=== PATIENT | male | born 1980 | race Caucasian/White ===

== ENCOUNTER 2016-04-16 12:19 | Inpatient (IN) | payer MEDICARE, OTHER ==
[~2016-04-16] VITALS: Ht 175.3 cm; Wt 111.1 kg
[~2016-04-16 12:19] MED LIST: LOPRESSOR 25 MG25 MG PO; NEURONTIN 300300 MG PO; NORCO 10-325 T1 EACH PO; NORCO 7.5-3251 EACH PO
[2016-04-16 14:10] LABS: RED BLOOD COUNT 5.53 M/UL (4.20-5.50); WHITE BLOOD COUNT 14.1 K/UL (4.5-11.0)
[2016-04-16 15:20] LABS: BUN/CREATININE RATIO 7 (0-10)
[2016-04-16 22:06] LABS: TOTAL PROTEIN, BODY FLUID 4.5 gm/dL
[2016-04-17 08:04] LABS: HEMOGLOBIN 14.4 gm/dl (14.0-17.5); RED BLOOD COUNT 4.71 M/UL (4.20-5.50); WHITE BLOOD COUNT 7.5 K/UL (4.5-11.0)
[2016-04-17 08:20] LABS: BUN/CREATININE RATIO 11 (0-10)
[2016-04-18 04:10] LABS: HEMOGLOBIN 13.5 gm/dl (14.0-17.5); RED BLOOD COUNT 4.46 M/UL (4.20-5.50); WHITE BLOOD COUNT 7.4 K/UL (4.5-11.0)
[2016-04-18 04:36] LABS: BUN/CREATININE RATIO 11 (0-10)
[2016-04-19] MEDS ORDERED: TYLENOL 325MG325 MG PO (17:39)
[2016-04-19] MEDS ORDERED: LORTAB 5-325 M1 EACH PO (17:40)
== END 2016-04-19 20:00 | disposition home or self-care (01) | DRG 565 ==
LOC: ER1 12:19 → ZEROF 22:28 → M/S 04-17 15:07 → PROG CARE 04-17 22:25 → M/S 04-18 17:57
PROVIDERS: Emergency Medicine; ADMIT Internal Medicine
DX: M25.462 Effusion, left knee (principal); E87.2 Acidosis; S83.006A Unspecified dislocation of unspecified patella, initial encounter; Y04.8XXA Assault by other bodily force, initial encounter; Y92.019 Unspecified place in single-family (private) house as the place of occurrence of the external cause; F11.10 Opioid abuse, uncomplicated; Z51.89 Encounter for other specified aftercare; R55 Syncope and collapse; M54.9 Dorsalgia, unspecified; M54.2 Cervicalgia; G89.29 Other chronic pain; Z72.89 Other problems related to lifestyle; Z83.3 Family history of diabetes mellitus; R51 Headache; E11.9 Type 2 diabetes mellitus without complications; K21.9 Gastro-esophageal reflux disease without esophagitis; K44.9 Diaphragmatic hernia without obstruction or gangrene; Z98.890 Other specified postprocedural states; Z90.49 Acquired absence of other specified parts of digestive tract; Z88.0 Allergy status to penicillin; R00.0 Tachycardia, unspecified; Z87.39 Personal history of other diseases of the musculoskeletal system and connective tissue
CPT/HCPCS: 36415; 36600; 70450; 71010; 71250; 72125; 73080; 73090; 73110; 73564; 73700; 73721; 80048; 80053; 80307; 81001; 82150; 82550; 82553; 82803; 82945; 82962; 83036; 83605; 83615; 83690; 83735; 83874; 83986; 84157; 84484; 84550; 85025; 85027; 85610; 85730; 86140; 87040; 87070; 87086; 87205; 89051; 89060; 93005; 96361; 96374; 96375; 99285; C9113; G0378; G0480; J0692; J0696; J1630; J1650; J1815; J1885; J2270; J2405; J2550; J3370; J7030; J7050; J7070; Q9962; Q9963

== ENCOUNTER 2016-04-24 10:59 | Emergency (ER) | payer MEDICARE, OTHER ==
[~2016-04-24 10:59] MED LIST changes: +LORTAB 5-325 M1 EACH PO; +TYLENOL 325MG325 MG PO
== END 2016-04-24 12:00 | disposition home or self-care (01) ==
LOC: ER1 10:59
DX: M25.562 Pain in left knee (principal); G89.29 Other chronic pain; Z88.6 Allergy status to analgesic agent; Y09 Assault by unspecified means
CPT/HCPCS: 99283

== ENCOUNTER 2016-04-26 19:53 | Observation (INO) | payer MEDICARE, OTHER ==
[~2016-04-26] VITALS: Ht 175.3 cm; Wt 110.2 kg
[2016-04-26 20:36] LABS: HEMOGLOBIN 15.2 gm/dl (14.0-17.5); RED BLOOD COUNT 4.89 M/UL (4.20-5.50)
[2016-04-26 20:52] LABS: BUN/CREATININE RATIO 9 (0-10)
[2016-04-27 07:31] LABS: HEMOGLOBIN 14.6 gm/dl (14.0-17.5); RED BLOOD COUNT 4.82 M/UL (4.20-5.50); WHITE BLOOD COUNT 8.9 K/UL (4.5-11.0)
[2016-04-27 07:47] LABS: BUN/CREATININE RATIO 11 (0-10)
[2016-04-27] MEDS ORDERED: TENORMIN 25 MG25 MG PO (19:39)
[2016-04-27] MEDS ORDERED: NAPROXEN500 MG PO (19:55)
== END 2016-04-27 21:07 | disposition home or self-care (01) ==
LOC: ER1 19:53 → ZEROF 04-27 01:40 → M/S 04-27 13:38
PROVIDERS: Specialist/Technologist Athletic Trainer; ADMIT Internal Medicine
DX: M25.562 Pain in left knee (principal); E87.2 Acidosis; K21.9 Gastro-esophageal reflux disease without esophagitis; E66.9 Obesity, unspecified; R00.0 Tachycardia, unspecified; Z87.898 Personal history of other specified conditions; Z88.0 Allergy status to penicillin; Z79.891 Long term (current) use of opiate analgesic; Z79.899 Other long term (current) drug therapy; Z90.49 Acquired absence of other specified parts of digestive tract; Z98.890 Other specified postprocedural states
CPT/HCPCS: ECHO; 36415; 73564; 80048; 80053; 80307; 82009; 83605; 84443; 85025; 86140; 87040; 93005; 93306; 96361; 96374; 96375; 99285; G0378; J2270; J2405; J7030

== ENCOUNTER 2020-03-30 12:58 | Emergency (ER) | payer MEDICARE ==
[~2020-03-30 12:58] MED LIST changes: +FLEXERIL 10 MG10 MG PO; +NAPROXEN500 MG PO; +TENORMIN 25 MG25 MG PO; +Voltaren Gel 1 % TOP; +[UNRECOGNIZED DRUG - OTHER]
[2020-03-30 14:43] LABS: HEMOGLOBIN 15.5 gm/dl (14.0-17.5); RED BLOOD COUNT 4.86 M/UL (4.20-5.50); WHITE BLOOD COUNT 7.6 K/UL (4.5-11.0)
[2020-03-30 15:10] LABS: BUN/CREATININE RATIO 21 (0-10)
== END 2020-03-31 12:10 | disposition other institution (70) ==
LOC: ER1 12:58
PROVIDERS: Emergency Medicine
DX: K22.8 Other specified diseases of esophagus (principal); R00.0 Tachycardia, unspecified; F20.9 Schizophrenia, unspecified; R45.851 Suicidal ideations; Z20.822 Contact with and (suspected) exposure to COVID-19; I10 Essential (primary) hypertension; Z90.49 Acquired absence of other specified parts of digestive tract; Z88.0 Allergy status to penicillin
CPT/HCPCS: 71045; 80053; 80307; 81001; 82550; 82553; 83690; 83874; 84484; 85025; 93005; 99285; U0002

== ENCOUNTER 2020-05-10 17:52 | Emergency (ER) | payer MEDICARE ==
[2020-05-10 18:25] LABS: HEMOGLOBIN 15.5 gm/dl (14.0-17.5); RED BLOOD COUNT 4.86 M/UL (4.20-5.50); WHITE BLOOD COUNT 9.1 K/UL (4.5-11.0)
[2020-05-10 18:38] LABS: BUN/CREATININE RATIO 16 (0-10)
== END 2020-05-11 02:25 | disposition short-term general hospital (02) ==
LOC: ER1 17:52
PROVIDERS: Student in an Organized Health Care Education/Training Program
DX: F41.9 Anxiety disorder, unspecified (principal); I10 Essential (primary) hypertension; Z20.822 Contact with and (suspected) exposure to COVID-19; Z88.0 Allergy status to penicillin
CPT/HCPCS: 80053; 85025; 93005; 99284; G0480; J7120; Q0177; U0002

== ENCOUNTER 2020-05-21 09:14 | Inpatient (IN) | payer MEDICARE ==
[~2020-05-21] VITALS: Ht 185.4 cm; Wt 108.9 kg
[2020-05-21 11:04] LABS: HEMOGLOBIN 16.7 gm/dl (14.0-17.5); RED BLOOD COUNT 5.23 M/UL (4.20-5.50); WHITE BLOOD COUNT 12.2 K/UL (4.5-11.0)
[2020-05-21 11:51] LABS: BUN/CREATININE RATIO 12 (0-10)
[2020-05-22 04:23] LABS: HEMOGLOBIN 13.7 gm/dl (14.0-17.5); RED BLOOD COUNT 4.38 M/UL (4.20-5.50)
[2020-05-22 04:51] LABS: BUN/CREATININE RATIO 18 (0-10)
[2020-05-22] MEDS ORDERED: FOLIC ACID 1 MG1 MG PO (11:35)
[2020-05-22] MEDS ORDERED: THERA-M TABLET1 EACH PO (11:35)
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
== END 2020-05-24 15:39 | disposition home or self-care (01) | DRG 896 ==
LOC: ER1 09:14 → MED SURG 4 17:40 → CDU 17:40 → MED SURG 4 20:40
PROVIDERS: Physician Assistant; ADMIT Internal Medicine
DX: F15.151 Other stimulant abuse with stimulant-induced psychotic disorder with hallucinations (principal); G92 Toxic encephalopathy; J98.11 Atelectasis; Z20.822 Contact with and (suspected) exposure to COVID-19; D64.9 Anemia, unspecified; F17.210 Nicotine dependence, cigarettes, uncomplicated; F10.10 Alcohol abuse, uncomplicated; F20.9 Schizophrenia, unspecified; F31.9 Bipolar disorder, unspecified; R00.0 Tachycardia, unspecified; K21.9 Gastro-esophageal reflux disease without esophagitis; Z90.49 Acquired absence of other specified parts of digestive tract; Z88.0 Allergy status to penicillin; Z88.8 Allergy status to other drugs, medicaments and biological substances; Z82.49 Family history of ischemic heart disease and other diseases of the circulatory system; Z83.3 Family history of diabetes mellitus
CPT/HCPCS: 36415; 71045; 80053; 80307; 81001; 82550; 82553; 83735; 83874; 84439; 84443; 84484; 85025; 85379; 87040; 93005; 96374; 96376; 99285; G0480; J2060; J3411; J3475; J7030; U0002

== ENCOUNTER 2020-05-29 16:14 | Inpatient (IN) | payer MEDICARE ==
[~2020-05-29] VITALS: Ht 185.4 cm; Wt 101.6 kg
[~2020-05-29 16:14] MED LIST changes: +FOLIC ACID 1 MG1 MG PO; +THERA-M TABLET1 EACH PO
[2020-05-29 16:31] LABS: HEMOGLOBIN 15.5 gm/dl (14.0-17.5); RED BLOOD COUNT 4.91 M/UL (4.20-5.50); WHITE BLOOD COUNT 13.5 K/UL (4.5-11.0)
[2020-05-29 16:54] LABS: BUN/CREATININE RATIO 6 (0-10)
[2020-05-30 04:20] LABS: HEMOGLOBIN 12.9 gm/dl (14.0-17.5); RED BLOOD COUNT 4.1 M/UL (4.20-5.50); WHITE BLOOD COUNT 7.7 K/UL (4.5-11.0)
[2020-05-30 04:45] LABS: BUN/CREATININE RATIO 7 (0-10)
[2020-05-30 13:37] LABS: BUN/CREATININE RATIO 7 (0-10)
[2020-05-31 06:40] LABS: BUN/CREATININE RATIO 6 (0-10)
[2020-06-01 04:52] LABS: ACINETOBACTER BAUMANNII Not Detected (Negative); CANDIDA ALBICANS Not Detected (Negative); CANDIDA KRUSEI Not Detected (Negative); CANDIDA TROPICALIS Not Detected (Negative); ENTEROCOCCUS Not Detected (Negative); ESCHERICHIA COLI Not Detected (Negative); HAEMOPHILUS INFLUENZAE Not Detected (Negative); KLEBSIELLA OXYTOCA Not Detected (Negative); KLEBSIELLA PNEUMONIAE Not Detected (Negative); KPC-CARBAPENEM-RESISTANCE GENE Not Detected (Negative); PROTEUS Not Detected (Negative); PSEUDOMONAS AERUGINOSA Not Detected (Negative); SERRATIA MARCESANS Not Detected (Negative); STAPHYLOCOCCUS Not Detected (Negative); STAPHYLOCOCCUS AUREUS Not Detected (Negative); STREP AGALACTIAE (GROUP B) Not Detected (Negative); STREP PYOGENES (GROUP A) Not Detected (Negative); STREPTOCOCCUS Not Detected (Negative); mecA (METHICILLIN RESIST GENE Not Detected (Negative); vanA/B (VANCOMYCIN RESIST GENE Not Detected (Negative)
[2020-06-01 06:57] LABS: BUN/CREATININE RATIO 6 (0-10)
[2020-06-02 04:53] LABS: HEMOGLOBIN 13.9 gm/dl (14.0-17.5); RED BLOOD COUNT 4.54 M/UL (4.20-5.50); WHITE BLOOD COUNT 5.4 K/UL (4.5-11.0)
[2020-06-02 05:16] LABS: BUN/CREATININE RATIO 8 (0-10)
[2020-06-03] MEDS ORDERED: OLANZAPINE10 MG PO (14:34)
[2020-06-03] MEDS ORDERED: CITALOPRAM HBR40 MG PO (14:34)
[2020-06-03] MEDS ORDERED: TRAZODONE HCL100 MG PO (14:35)
[2020-06-03] MEDS ORDERED: HYDROXYZINE HCL25 MG PO (23:36)
== END 2020-06-02 13:24 | disposition home or self-care (01) | DRG 897 ==
LOC: ER1 16:14 → CDU 18:25 → MED SURG 4 18:25
PROVIDERS: Family Medicine; ADMIT Internal Medicine
PROC: B24BZZ4 Ultrasonography of Heart with Aorta, Transesophageal (ICD-10-PCS; principal; 2020-05-29)
DX: F15.129 Other stimulant abuse with intoxication, unspecified (principal); E87.2 Acidosis; N17.9 Acute kidney failure, unspecified; M62.82 Rhabdomyolysis; R65.10 Systemic inflammatory response syndrome (SIRS) of non-infectious origin without acute organ dysfunction; F10.229 Alcohol dependence with intoxication, unspecified; F20.9 Schizophrenia, unspecified; K21.9 Gastro-esophageal reflux disease without esophagitis; F17.210 Nicotine dependence, cigarettes, uncomplicated; E86.0 Dehydration; E86.1 Hypovolemia; E87.6 Hypokalemia; F22 Delusional disorders
CPT/HCPCS: ECHO; 36415; 36600; 71045; 80048; 80053; 80202; 80307; 81001; 82550; 82553; 82803; 83605; 83690; 83735; 83874; 84100; 84439; 84443; 84484; 85025; 85027; 85610; 87040; 87077; 87150; 93005; 93306; 94760; 96374; 96375; 96376; 99285; G0378; G0480; J2060; J3370; J7030; J7040; J7070; U0002

== ENCOUNTER 2020-06-03 05:53 | Inpatient (IN) | payer MEDICARE ==
[~2020-06-03] VITALS: Ht 185.4 cm; Wt 108.9 kg
[2020-06-03 06:20] LABS: HEMOGLOBIN 15.8 gm/dl (14.0-17.5)
[2020-06-03 06:24] LABS: RED BLOOD COUNT 5.01 M/UL (4.20-5.50); WHITE BLOOD COUNT 10.6 K/UL (4.5-11.0)
[2020-06-03 06:50] LABS: BUN/CREATININE RATIO 4 (0-10)
[2020-06-03] MEDS ORDERED: OLANZAPINE10 MG PO (14:34)
[2020-06-03] MEDS ORDERED: CITALOPRAM HBR40 MG PO (14:34)
[2020-06-03] MEDS ORDERED: TRAZODONE HCL100 MG PO (14:35)
[2020-06-03 23:31] LABS: ACINETOBACTER BAUMANNII Not Detected (Negative); CANDIDA ALBICANS Not Detected (Negative); CANDIDA KRUSEI Not Detected (Negative); CANDIDA TROPICALIS Not Detected (Negative); ENTEROCOCCUS Not Detected (Negative); ESCHERICHIA COLI Not Detected (Negative); HAEMOPHILUS INFLUENZAE Not Detected (Negative); KLEBSIELLA OXYTOCA Not Detected (Negative); KLEBSIELLA PNEUMONIAE Not Detected (Negative); KPC-CARBAPENEM-RESISTANCE GENE Not Detected (Negative); PROTEUS Not Detected (Negative); PSEUDOMONAS AERUGINOSA Not Detected (Negative); SERRATIA MARCESANS Not Detected (Negative); STAPHYLOCOCCUS AUREUS Not Detected (Negative); STREP AGALACTIAE (GROUP B) Not Detected (Negative); STREP PYOGENES (GROUP A) Not Detected (Negative); STREPTOCOCCUS Not Detected (Negative); mecA (METHICILLIN RESIST GENE Not Detected (Negative); vanA/B (VANCOMYCIN RESIST GENE Not Detected (Negative)
[2020-06-03] MEDS ORDERED: HYDROXYZINE HCL25 MG PO (23:36)
[2020-06-04 01:10] LABS: STAPHYLOCOCCUS DETECTED (Negative)
[2020-06-04 07:36] LABS: HEMOGLOBIN 16.1 gm/dl (14.0-17.5); RED BLOOD COUNT 5.34 M/UL (4.20-5.50)
[2020-06-04 07:40] LABS: WHITE BLOOD COUNT 7.2 K/UL (4.5-11.0)
[2020-06-04 08:20] LABS: BUN/CREATININE RATIO 9 (0-10)
[2020-06-04] MEDS ORDERED: TAB-A-VITE TA400 MC1 PO (13:15)
[2020-06-04] MEDS ORDERED: ELIQUIS5 M1 PO (13:15)
[2020-06-04] MEDS ORDERED: VITAMIN B-1100 M1 PO (13:15)
[2020-06-05 11:15] LABS: RED BLOOD COUNT 4.73 M/UL (4.20-5.50); WHITE BLOOD COUNT 7.7 K/UL (4.5-11.0)
[2020-06-05 11:38] LABS: BUN/CREATININE RATIO 10 (0-10)
--- NOTE | 2020-06-06 13:35 | NUR ---
PER NOTE ON DISCHARGE, PATIENT WAS AMBULATED AND O2 SATS WERE AT 90% AFTER WALK. HOSPITALIST NOTIFIED.
== END 2020-06-06 14:15 | disposition home or self-care (01) | DRG 176 ==
LOC: ER1 05:53 → CDU 09:32 → PROG CARE 18:45 → MED SURG 4 06-05 16:20
PROVIDERS: Emergency Medicine; Physician Assistant; ADMIT Internal Medicine
PROC: B24BZZ4 Ultrasonography of Heart with Aorta, Transesophageal (ICD-10-PCS; principal; 2020-06-03)
DX: I26.99 Other pulmonary embolism without acute cor pulmonale (principal); F19.10 Other psychoactive substance abuse, uncomplicated; F10.10 Alcohol abuse, uncomplicated; F20.9 Schizophrenia, unspecified; F15.10 Other stimulant abuse, uncomplicated; I10 Essential (primary) hypertension; K21.9 Gastro-esophageal reflux disease without esophagitis; I70.0 Atherosclerosis of aorta; F17.210 Nicotine dependence, cigarettes, uncomplicated; Z91.14 Patient's other noncompliance with medication regimen; Z90.49 Acquired absence of other specified parts of digestive tract; Z82.49 Family history of ischemic heart disease and other diseases of the circulatory system; Z83.3 Family history of diabetes mellitus; Z88.0 Allergy status to penicillin; Z79.01 Long term (current) use of anticoagulants
CPT/HCPCS: 36415; 71045; 80048; 80053; 80202; 82550; 82553; 83605; 83690; 83735; 83874; 83880; 84100; 84484; 85025; 85027; 85379; 85610; 85730; 87040; 87077; 87150; 87186; 93005; 93308; 96374; 99285; J1644; J2060; J3370; J7070; Q9967; U0002

== ENCOUNTER 2020-06-22 10:15 | Emergency (ER) | payer MEDICARE ==
[~2020-06-22 10:15] MED LIST changes: +CITALOPRAM HBR40 MG PO; +ELIQUIS5 M1 PO; +HYDROXYZINE HCL25 MG PO; +OLANZAPINE10 MG PO; +TAB-A-VITE TA400 MC1 PO; +TRAZODONE HCL100 MG PO; +VITAMIN B-1100 M1 PO
[2020-06-22 10:55] LABS: HEMOGLOBIN 17.4 gm/dl (14.0-17.5); RED BLOOD COUNT 5.53 M/UL (4.20-5.50); WHITE BLOOD COUNT 6.9 K/UL (4.5-11.0)
[2020-06-22 11:30] LABS: BUN/CREATININE RATIO 6 (0-10)
== END 2020-06-22 17:50 | disposition home or self-care (01) ==
LOC: ER1 10:15
PROVIDERS: Emergency Medicine
DX: R44.0 Auditory hallucinations (principal); I10 Essential (primary) hypertension
CPT/HCPCS: 71045; 80053; 80307; 81001; 82550; 82553; 83690; 83880; 84484; 85025; 85610; 85730; 93005; 96374; 99285; J2060; Q9967

== ENCOUNTER 2020-09-14 08:56 | Observation (INO) | payer MEDICARE ==
[~2020-09-14] VITALS: Ht 188 cm; Wt 105.3 kg
[2020-09-14 11:04] LABS: HEMOGLOBIN 15.8 gm/dl (14.0-17.5); RED BLOOD COUNT 5.28 M/UL (4.20-5.50); WHITE BLOOD COUNT 13.1 K/UL (4.5-11.0)
[2020-09-14 11:33] LABS: BUN/CREATININE RATIO 8 (0-10)
--- NOTE | 2020-09-14 23:01 | NUR ---
2250 HOURSE MECHANICAL MANAGER (RAQUEL) CONTACTED ABOUT PATIENT'S BEDREST STATUS AND THAT HE REFUSES TO STAY IN THE BED. CASKET ASSEMBLER WAS ALSO NOTIFIED THAT THE PATIENT'S SITTER WASN'T GOING WITH THE PAITENT INTO THE BATHROOM TO MONITOR HIM BECAUSE OF HIS SI STATUS. NURSE DISCUSSED WITH SITTER THAT THE PATIENT NEEDS TO BE MONITOR EVEN IN THE BATHROOM BECAUSE OF SI STATUS. SITTER VERBALIZED UNDERSTANDING.
[2020-09-15 03:03] LABS: HEMOGLOBIN 13.9 gm/dl (14.0-17.5)
[2020-09-15 03:06] LABS: RED BLOOD COUNT 4.46 M/UL (4.20-5.50); WHITE BLOOD COUNT 6.8 K/UL (4.5-11.0)
[2020-09-15 03:18] LABS: BUN/CREATININE RATIO 8 (0-10)
[2020-09-15] MEDS ORDERED: LOPRESSOR 25 MG25 MG PO (15:54)
[2020-09-15] MEDS ORDERED: ELIQUIS 5 MG TAB5 MG PO (15:54)
[2020-09-15] MEDS ORDERED: TAB-A-VITE TA400 MC1 PO (15:54)
[2020-09-16 03:10] LABS: HEMOGLOBIN 13.5 gm/dl (14.0-17.5); RED BLOOD COUNT 4.35 M/UL (4.20-5.50); WHITE BLOOD COUNT 6.1 K/UL (4.5-11.0)
[2020-09-16 03:40] LABS: BUN/CREATININE RATIO 10 (0-10)
[2020-09-17 04:42] LABS: HEMOGLOBIN 13.2 gm/dl (14.0-17.5); RED BLOOD COUNT 4.46 M/UL (4.20-5.50)
[2020-09-17 04:44] LABS: WHITE BLOOD COUNT 11.2 K/UL (4.5-11.0)
[2020-09-17 05:15] LABS: BUN/CREATININE RATIO 9 (0-10)
[2020-09-17] MEDS ORDERED: KLONOPIN0.5 MG PO (10:28)
[2020-09-17] MEDS ORDERED: LEVOFLOXACIN500 MG PO (10:28)
== END 2020-09-17 12:20 | disposition home or self-care (01) ==
LOC: ER1 08:56 → PROG CARE 13:27 → CDU 13:27 → PROG CARE 18:05
PROVIDERS: Physician Assistant; Physician Assistant Medical; ADMIT Internal Medicine Infectious Disease
DX: R00.0 Tachycardia, unspecified (principal); J15.9 Unspecified bacterial pneumonia; F31.9 Bipolar disorder, unspecified; I10 Essential (primary) hypertension; Z20.822 Contact with and (suspected) exposure to COVID-19; E87.6 Hypokalemia; F17.210 Nicotine dependence, cigarettes, uncomplicated; F10.10 Alcohol abuse, uncomplicated; F15.10 Other stimulant abuse, uncomplicated; F19.10 Other psychoactive substance abuse, uncomplicated; R44.1 Visual hallucinations; Z86.711 Personal history of pulmonary embolism; Z79.01 Long term (current) use of anticoagulants; Z91.14 Patient's other noncompliance with medication regimen; Z82.49 Family history of ischemic heart disease and other diseases of the circulatory system; Z83.3 Family history of diabetes mellitus
CPT/HCPCS: 36415; 71046; 80048; 80053; 80307; 83605; 83735; 84439; 84443; 85025; 85027; 87040; 93005; 96372; 96374; 99285; G0378; G0480; J2060; J2405; J3486; U0002

== ENCOUNTER 2020-09-24 15:11 | Emergency (ER) | payer MEDICARE ==
[~2020-09-24 15:11] MED LIST changes: +ELIQUIS 5 MG TAB5 MG PO; +KLONOPIN0.5 MG PO; +LEVOFLOXACIN500 MG PO
[2020-09-24 18:19] LABS: HEMOGLOBIN 16.1 gm/dl (14.0-17.5); RED BLOOD COUNT 5.2 M/UL (4.20-5.50); WHITE BLOOD COUNT 2.5 K/UL (4.5-11.0)
[2020-09-24 18:57] LABS: BUN/CREATININE RATIO 8 (0-10)
[2020-09-24] MEDS ORDERED: DECADRON6 MG PO (21:59)
[2020-09-24] MEDS ORDERED: AZITHROMYCIN250 MG PO (21:59)
== END 2020-09-24 22:30 | disposition home or self-care (01) ==
LOC: ER1 15:11
PROVIDERS: Emergency Medicine
DX: U07.1 COVID-19 (principal); J12.82 Pneumonia due to coronavirus disease 2019; D72.819 Decreased white blood cell count, unspecified; Z88.0 Allergy status to penicillin
CPT/HCPCS: 71045; 80053; 82550; 82553; 83735; 83874; 83880; 84484; 85025; 93005; 99285; G0480; Q9967

== ENCOUNTER 2020-10-25 09:11 | Inpatient (IN) | payer MEDICARE ==
[~2020-10-25] VITALS: Ht 185.4 cm; Wt 103.9 kg
[~2020-10-25 09:11] MED LIST changes: +AZITHROMYCIN250 MG PO; +DECADRON6 MG PO
[2020-10-25 10:18] LABS: HEMOGLOBIN 17.7 gm/dl (14.0-17.5); RED BLOOD COUNT 5.98 M/UL (4.20-5.50); WHITE BLOOD COUNT 25.2 K/UL (4.5-11.0)
[2020-10-25] MEDS ORDERED: LOPRESSOR 25 MG25 MG PO (14:11)
[2020-10-26 02:29] LABS: WHITE BLOOD COUNT 13.2 K/UL (4.5-11.0)
[2020-10-26 02:30] LABS: HEMOGLOBIN 14.3 gm/dl (14.0-17.5); RED BLOOD COUNT 4.6 M/UL (4.20-5.50)
[2020-10-26 03:16] LABS: BUN/CREATININE RATIO 18 (0-10)
[2020-10-27 04:02] LABS: RED BLOOD COUNT 4.26 M/UL (4.20-5.50)
[2020-10-27 04:08] LABS: WHITE BLOOD COUNT 5.3 K/UL (4.5-11.0)
[2020-10-27 04:44] LABS: BUN/CREATININE RATIO 10 (0-10)
[2020-10-28 04:08] LABS: HEMOGLOBIN 13.5 gm/dl (14.0-17.5); RED BLOOD COUNT 4.34 M/UL (4.20-5.50)
[2020-10-28 04:10] LABS: WHITE BLOOD COUNT 8.5 K/UL (4.5-11.0)
[2020-10-28 05:43] LABS: BUN/CREATININE RATIO 7 (0-10)
[2020-10-28] MEDS ORDERED: ELIQUIS 5 MG TAB5 MG PO (17:57)
[2020-10-28] MEDS ORDERED: ELIQUIS5 MG PO (17:57)
[2020-10-28] MEDS ORDERED: ZOFRAN 4 MG TAB4 MG PO (18:01)
[2020-10-28] MEDS ORDERED: LEVOFLOXACIN750 MG PO (18:01)
[2020-10-28] MEDS ORDERED: PROTONIX 40 MG40 M1 PO (18:12)
--- NOTE | 2020-10-28 19:25 | NUR ---
PT BEING DISCHARGED HOME. PT STATING THAT HE HAD A WALLET AND CLOTHES THAT WERE MISSING. PT STATED THAT HE HAD THEM WHEN HE WAS ADMITTED TO THE HOSPITAL. SPOKE WITH SECURITY AND SECURITY STATED THAT THE PT DID NOT HAVE ANY BELONGINGS IN THE SAFE. SPOKE WITH RESOURCE RN AND RESOURCE RN STATED THAT HE HAD CHECKED THE LOST AND FOUND, DIRTY UTILITY, AND THE ER AND WAS UNABLE TO FIND ANYTHING BELONGING TO THE PATIENT. PT ALSO DID NOT HAVE A VERDUGO SLIP IN HIS CHART INDICATING THAT HE HAD ANY BELONGINGS LOCKED UP. PT'S CHART DID NOT MENTION A WALLET UPON ADMISSION.
== END 2020-10-28 20:00 | disposition home or self-care (01) | DRG 193 ==
LOC: ER1 09:11 → M/S 13:50 → CDU 13:50 → M/S 17:53
PROVIDERS: Emergency Medicine; Physician Assistant; Physician Assistant Medical; ADMIT Internal Medicine
DX: J18.9 Pneumonia, unspecified organism (principal); I26.99 Other pulmonary embolism without acute cor pulmonale; I82.621 Acute embolism and thrombosis of deep veins of right upper extremity; N17.9 Acute kidney failure, unspecified; M62.82 Rhabdomyolysis; E87.1 Hypo-osmolality and hyponatremia; E87.2 Acidosis; Z20.822 Contact with and (suspected) exposure to COVID-19; E80.6 Other disorders of bilirubin metabolism; K21.9 Gastro-esophageal reflux disease without esophagitis; F31.9 Bipolar disorder, unspecified; F20.9 Schizophrenia, unspecified; D75.1 Secondary polycythemia; F10.10 Alcohol abuse, uncomplicated; F19.10 Other psychoactive substance abuse, uncomplicated; F15.10 Other stimulant abuse, uncomplicated; Z88.1 Allergy status to other antibiotic agents; Z79.01 Long term (current) use of anticoagulants; Z86.718 Personal history of other venous thrombosis and embolism; Z91.14 Patient's other noncompliance with medication regimen; Z90.49 Acquired absence of other specified parts of digestive tract; Z88.6 Allergy status to analgesic agent; Z88.0 Allergy status to penicillin; Z83.3 Family history of diabetes mellitus; Z82.49 Family history of ischemic heart disease and other diseases of the circulatory system
CPT/HCPCS: 36415; 71045; 71046; 80048; 80053; 80076; 80202; 80307; 81001; 82550; 82553; 83690; 83735; 83874; 84484; 85025; 85027; 87040; 93971; 96374; 96375; 96376; 99285; G0378; G0480; J1650; J1956; J2060; J2405; J3370; J7030; J7070; Q9967; U0002

== ENCOUNTER 2020-11-03 17:28 | Emergency (ER) | payer MEDICARE ==
[~2020-11-03 17:28] MED LIST changes: +ELIQUIS5 MG PO; +LEVOFLOXACIN750 MG PO; +PROTONIX 40 MG40 M1 PO; +ZOFRAN 4 MG TAB4 MG PO
[2020-11-03 18:25] LABS: RED BLOOD COUNT 5.17 M/UL (4.20-5.50); WHITE BLOOD COUNT 8.4 K/UL (4.5-11.0)
[2020-11-03 18:28] LABS: HEMOGLOBIN 16.2 gm/dl (14.0-17.5)
[2020-11-03 18:43] LABS: BUN/CREATININE RATIO 7 (0-10)
== END 2020-11-03 20:10 | disposition home or self-care (01) ==
LOC: ER1 17:28
PROVIDERS: Nurse Practitioner
DX: R10.9 Unspecified abdominal pain (principal); R30.0 Dysuria; R11.0 Nausea; F17.210 Nicotine dependence, cigarettes, uncomplicated
CPT/HCPCS: 80053; 81001; 85025; 99284

== ENCOUNTER 2020-11-09 17:49 | Emergency (ER) | payer MEDICARE ==
[2020-11-09 19:31] LABS: HEMOGLOBIN 15.8 gm/dl (14.0-17.5); RED BLOOD COUNT 4.94 M/UL (4.20-5.50); WHITE BLOOD COUNT 14.7 K/UL (4.5-11.0)
[2020-11-09 20:25] LABS: BUN/CREATININE RATIO 6 (0-10)
== END 2020-11-09 22:08 | disposition home or self-care (01) ==
LOC: ER1 17:49
PROVIDERS: Preventive Medicine Occupational Medicine
DX: E86.0 Dehydration (principal); F15.10 Other stimulant abuse, uncomplicated; R19.7 Diarrhea, unspecified; R11.2 Nausea with vomiting, unspecified
CPT/HCPCS: 80053; 82550; 82553; 83690; 83874; 84484; 85025; 85652; 86140; 96374; 99284; J2060; J7030

== ENCOUNTER 2020-11-15 11:30 | Emergency (ER) | payer MEDICARE ==
[2020-11-15 12:29] LABS: HEMOGLOBIN 15.4 gm/dl (14.0-17.5); RED BLOOD COUNT 4.87 M/UL (4.20-5.50); WHITE BLOOD COUNT 6.3 K/UL (4.5-11.0)
[2020-11-15 13:47] LABS: BUN/CREATININE RATIO 7 (0-10)
== END 2020-11-15 17:07 | disposition short-term general hospital (02) ==
LOC: ER1 11:30
PROVIDERS: Physician Assistant
DX: R44.3 Hallucinations, unspecified (principal); F10.10 Alcohol abuse, uncomplicated; F17.220 Nicotine dependence, chewing tobacco, uncomplicated; Z90.49 Acquired absence of other specified parts of digestive tract; Z90.89 Acquired absence of other organs; Z88.0 Allergy status to penicillin; Z88.6 Allergy status to analgesic agent; Z20.822 Contact with and (suspected) exposure to COVID-19; Y90.0 Blood alcohol level of less than 20 mg/100 ml
CPT/HCPCS: 80053; 85025; 93005; 96374; 96375; 99285; G0480; J2060; J3411; J3475; J7030; U0002

== ENCOUNTER 2020-11-23 14:57 | Emergency (ER) | payer MEDICARE ==
[2020-11-23 16:25] LABS: HEMOGLOBIN 16.3 gm/dl (14.0-17.5); RED BLOOD COUNT 5.18 M/UL (4.20-5.50); WHITE BLOOD COUNT 14.4 K/UL (4.5-11.0)
[2020-11-23 16:49] LABS: BUN/CREATININE RATIO 14 (0-10)
[2020-11-23] MEDS ORDERED: PROTONIX 40 MG40 M1 PO (20:58)
[2020-11-23] MEDS ORDERED: PHENERGAN 12.12.5 M1 PO (20:58)
== END 2020-11-23 21:09 | disposition home or self-care (01) ==
LOC: ER1 14:57
PROVIDERS: Physician Assistant; Student in an Organized Health Care Education/Training Program
DX: K22.89 Other specified disease of esophagus (principal); I10 Essential (primary) hypertension; R00.0 Tachycardia, unspecified; Z79.01 Long term (current) use of anticoagulants; F17.200 Nicotine dependence, unspecified, uncomplicated; R73.9 Hyperglycemia, unspecified; Z90.49 Acquired absence of other specified parts of digestive tract
CPT/HCPCS: 80053; 80307; 81001; 82550; 83605; 83690; 85025; 87040; 96374; 96375; 99284; J2270; J2405; J7030; Q9967

== ENCOUNTER 2020-11-24 18:25 | Emergency (ER) | payer MEDICARE ==
[~2020-11-24 18:25] MED LIST changes: +PHENERGAN 12.12.5 M1 PO
[2020-11-24 18:46] LABS: HEMOGLOBIN 15.4 gm/dl (14.0-17.5); RED BLOOD COUNT 4.98 M/UL (4.20-5.50); WHITE BLOOD COUNT 10.9 K/UL (4.5-11.0)
[2020-11-24 19:10] LABS: BUN/CREATININE RATIO 4 (0-10)
== END 2020-11-25 00:05 | disposition home or self-care (01) ==
LOC: ER1 18:25
PROVIDERS: Preventive Medicine Occupational Medicine
DX: F19.10 Other psychoactive substance abuse, uncomplicated (principal); I10 Essential (primary) hypertension; F17.210 Nicotine dependence, cigarettes, uncomplicated; Z20.822 Contact with and (suspected) exposure to COVID-19
CPT/HCPCS: 71045; 80053; 80307; 81001; 85025; 85652; 86140; 87086; 93005; 96374; 99284; J2060; U0002

== ENCOUNTER 2020-12-19 22:57 | Observation (INO) | payer MEDICARE ==
[~2020-12-19] VITALS: Ht 185.4 cm; Wt 90.5 kg
[2020-12-20 00:40] LABS: HEMOGLOBIN 14.4 gm/dl (14.0-17.5); RED BLOOD COUNT 4.57 M/UL (4.20-5.50); WHITE BLOOD COUNT 7.1 K/UL (4.5-11.0)
[2020-12-20 00:52] LABS: BUN/CREATININE RATIO 8 (0-10)
[2020-12-20] MEDS ORDERED: ELIQUIS5 MG PO (09:59)
[2020-12-20] MEDS ORDERED: PROTONIX 40 MG40 M1 PO (10:01)
--- NOTE | 2020-12-20 17:55 | NUR ---
PT HAS REQUESTED TO REMOVE CONTINUOUS FLUIDS. HE IS SITTING UP IN BED EATING AT THIS TIME, HE DENIES NEEDS OR C/O AT THIS TIME.
[2020-12-21 06:57] LABS: BUN/CREATININE RATIO 8 (0-10)
--- NOTE | 2020-12-21 11:40 | NUR ---
[facility] DID ZOOM WITH PATIENT, HE HAS BEEN RECOMMENDED FOR OUT PATIENT CARE, POSSIBLY WITH [facility].
== END 2020-12-21 13:20 | disposition home or self-care (01) ==
LOC: ER1 22:57 → CDU 12-20 02:09 → MED SURG 4 12-20 02:09
PROVIDERS: Family Medicine; Internal Medicine; ADMIT Internal Medicine
DX: R11.2 Nausea with vomiting, unspecified (principal); R00.0 Tachycardia, unspecified; F31.9 Bipolar disorder, unspecified; F20.9 Schizophrenia, unspecified; F17.200 Nicotine dependence, unspecified, uncomplicated; R45.851 Suicidal ideations; F15.10 Other stimulant abuse, uncomplicated; F10.10 Alcohol abuse, uncomplicated; K21.9 Gastro-esophageal reflux disease without esophagitis; J44.9 Chronic obstructive pulmonary disease, unspecified; Z20.822 Contact with and (suspected) exposure to COVID-19; Z86.711 Personal history of pulmonary embolism; Z79.01 Long term (current) use of anticoagulants; Z79.899 Other long term (current) drug therapy; Z88.0 Allergy status to penicillin; Z88.1 Allergy status to other antibiotic agents; Z88.6 Allergy status to analgesic agent; Z88.8 Allergy status to other drugs, medicaments and biological substances; Z90.49 Acquired absence of other specified parts of digestive tract; Z98.890 Other specified postprocedural states; Z91.19 Patient's noncompliance with other medical treatment and regimen
CPT/HCPCS: 36415; 80053; 80307; 81001; 82550; 82553; 83690; 83735; 83874; 84484; 85025; 85610; 93005; 96365; 96375; 96376; 99285; C9113; G0378; G0480; J3411; J3475; J7030; U0002

== ENCOUNTER 2021-01-06 00:23 | Emergency (ER) | payer MEDICARE ==
[2021-01-06 01:19] LABS: HEMOGLOBIN 15.3 gm/dl (14.0-17.5); RED BLOOD COUNT 4.88 M/UL (4.20-5.50)
[2021-01-06 01:36] LABS: BUN/CREATININE RATIO 8 (0-10)
[2021-01-06] MEDS ORDERED: ZOFRAN4 MG PO (03:18)
== END 2021-01-06 03:45 | disposition home or self-care (01) ==
LOC: ER1 00:23
PROVIDERS: Physician Assistant Medical
DX: F19.10 Other psychoactive substance abuse, uncomplicated (principal); R11.2 Nausea with vomiting, unspecified; J44.9 Chronic obstructive pulmonary disease, unspecified; K21.9 Gastro-esophageal reflux disease without esophagitis; I10 Essential (primary) hypertension; Z88.0 Allergy status to penicillin; Z79.01 Long term (current) use of anticoagulants
CPT/HCPCS: 80053; 80307; 81001; 83690; 85025; 93005; 96374; 99284; G0480; J2405; J7030

== ENCOUNTER → 2021-01-24 | Outpatient (CLI) | payer OTHER ==
[~2021-01-24] MED LIST changes: +ZOFRAN4 MG PO
== END ==
LOC: LAB 13:29
DX: Z02.83 Encounter for blood-alcohol and blood-drug test (principal)
CPT/HCPCS: 36415

== ENCOUNTER 2021-04-28 11:58 | Emergency (ER) | payer MEDICARE ==
[2021-04-28 12:33] LABS: HEMOGLOBIN 15.5 gm/dl (14.0-17.5); RED BLOOD COUNT 5.05 M/UL (4.20-5.50)
[2021-04-28 13:05] LABS: BUN/CREATININE RATIO 14 (0-10)
== END 2021-04-28 16:11 | disposition home or self-care (01) ==
LOC: ER1 11:58
PROVIDERS: Nurse Practitioner
DX: R07.89 Other chest pain (principal); Z88.0 Allergy status to penicillin
CPT/HCPCS: 71045; 80053; 82550; 82553; 84484; 85025; 93005; 96374; 99285; J2270

== ENCOUNTER 2021-05-28 19:52 | Observation (INO) | payer MEDICARE ==
[~2021-05-28] VITALS: Ht 182.9 cm; Wt 85.7 kg
[~2021-05-28 19:52] MED LIST changes: -HYDROXYZINE HCL25 MG PO
[2021-05-28 21:34] LABS: HEMOGLOBIN 15.2 gm/dl (14.0-17.5); RED BLOOD COUNT 4.93 M/UL (4.20-5.50); WHITE BLOOD COUNT 23.1 K/UL (4.5-11.0)
[2021-05-28 22:15] LABS: BUN/CREATININE RATIO 7 (0-10)
[2021-05-29] MEDS ORDERED: COMPAZINE5 MG PO (18:44)
[2021-05-29] MEDS ORDERED: ZYPREXA10 MG PO (18:45)
[2021-05-29] MEDS ORDERED: HYDROXYZINE HCL25 MG PO (23:36)
[2021-05-30 04:36] LABS: BUN/CREATININE RATIO 4 (0-10)
[2021-05-31 06:41] LABS: HEMOGLOBIN 12.8 gm/dl (14.0-17.5); RED BLOOD COUNT 4.23 M/UL (4.20-5.50); WHITE BLOOD COUNT 5.2 K/UL (4.5-11.0)
[2021-05-31 07:18] LABS: BUN/CREATININE RATIO 6 (0-10)
[2021-05-31] MEDS ORDERED: LEVOFLOXACIN750 MG PO (11:14)
[2021-05-31] MEDS ORDERED: MYLANTA MAXIMU355 ML PO (11:14)
== END 2021-05-31 13:49 | disposition home or self-care (01) ==
LOC: ER1 19:52 → MED SURG 4 05-29 04:11 → CDU 05-29 04:11 → MED SURG 4 05-29 04:11
PROVIDERS: Family Medicine; Internal Medicine; Physician Assistant Medical; ADMIT Internal Medicine
DX: J18.9 Pneumonia, unspecified organism (principal); Z20.822 Contact with and (suspected) exposure to COVID-19; K21.9 Gastro-esophageal reflux disease without esophagitis; N20.0 Calculus of kidney; F19.10 Other psychoactive substance abuse, uncomplicated; F10.10 Alcohol abuse, uncomplicated; F20.9 Schizophrenia, unspecified; F31.9 Bipolar disorder, unspecified; J44.9 Chronic obstructive pulmonary disease, unspecified; Z79.01 Long term (current) use of anticoagulants; Z79.899 Other long term (current) drug therapy; Z86.711 Personal history of pulmonary embolism; Z88.0 Allergy status to penicillin; Z88.1 Allergy status to other antibiotic agents; Z88.6 Allergy status to analgesic agent
CPT/HCPCS: 36415; 71045; 80053; 80202; 80307; 81001; 83605; 83690; 83735; 84100; 85025; 85610; 87040; 87086; 93005; 96365; 96375; 96376; 99285; C9113; G0378; G0480; J1956; J3370; J7030; J7070; Q9967; U0002

== ENCOUNTER 2021-07-23 14:54 | Emergency (ER) | payer MEDICARE ==
[~2021-07-23 14:54] MED LIST changes: +COLACE100 MG PO; +COMPAZINE5 MG PO; +HYDROXYZINE HCL25 MG PO; +MYLANTA MAXIMU355 ML PO; +ZYPREXA10 MG PO
[2021-07-23 17:00] LABS: HEMOGLOBIN 14.7 gm/dl (14.0-17.5); RED BLOOD COUNT 4.82 M/UL (4.20-5.50)
[2021-07-23 17:24] LABS: BUN/CREATININE RATIO 9 (0-10)
[2021-07-23] MEDS ORDERED: ZOFRAN ODT 4 MG4 MG PO (23:51)
[2021-07-23] MEDS ORDERED: PROTONIX20 MG PO (23:51)
== END 2021-07-24 01:08 | disposition home or self-care (01) ==
LOC: ER1 14:54
PROVIDERS: Emergency Medicine
DX: K20.90 Esophagitis, unspecified without bleeding (principal)
CPT/HCPCS: 80053; 81001; 83690; 85025; 99284; C9113; Q9967

== ENCOUNTER 2021-08-07 09:55 | Emergency (ER) | payer MEDICARE ==
[~2021-08-07 09:55] MED LIST changes: +PROTONIX20 MG PO; +ZOFRAN ODT 4 MG4 MG PO
[2021-08-07 11:12] LABS: HEMOGLOBIN 12.3 gm/dl (14.0-17.5); RED BLOOD COUNT 4.06 M/UL (4.20-5.50)
[2021-08-07 11:39] LABS: BUN/CREATININE RATIO 15 (0-10)
== END 2021-08-07 12:26 | disposition home or self-care (01) ==
LOC: ER1 09:55
PROVIDERS: Physician Assistant
DX: R10.11 Right upper quadrant pain (principal); R11.0 Nausea; E11.9 Type 2 diabetes mellitus without complications; Z90.49 Acquired absence of other specified parts of digestive tract; Z88.8 Allergy status to other drugs, medicaments and biological substances
CPT/HCPCS: 80053; 83690; 85025; 99284

== ENCOUNTER 2021-08-08 13:25 | Emergency (ER) | payer MEDICARE ==
[2021-08-08 14:24] LABS: HEMOGLOBIN 13.3 gm/dl (14.0-17.5); RED BLOOD COUNT 4.38 M/UL (4.20-5.50)
[2021-08-08 14:48] LABS: BUN/CREATININE RATIO 17 (0-10)
== END 2021-08-08 15:20 | disposition home or self-care (01) ==
LOC: ER1 13:25
PROVIDERS: Physician Assistant
DX: R10.9 Unspecified abdominal pain (principal); R11.2 Nausea with vomiting, unspecified; R19.7 Diarrhea, unspecified; Z88.6 Allergy status to analgesic agent
CPT/HCPCS: 80053; 83690; 85025; 93005; 99284